=== PATIENT | female | born 1935 | race Asian ===

== ENCOUNTER 2017-10-12 16:25 | Emergency (ER) | payer OTHER ==
[~2017-10-12] VITALS: Ht 152.4 cm; Wt 48.6 kg
[~2017-10-12 16:25] MED LIST: HYDR25TA PO; LISI-661 PO
[2017-10-12] MEDS ORDERED: ASPI81 PO (16:42)
[2017-10-12] MEDS ORDERED: AMLO2.5T PO (16:42)
[2017-10-12] MEDS ORDERED: METO25XL PO (16:42)
[2017-10-12] MEDS ORDERED: ACETAMINOPHEN 325 MG TABLET PO ONE ×2 (16:45→17:00)
[2017-10-12] MEDS ORDERED: SODIUM CHLORIDE 0.9% 1,000 ML IV ONE (17:00)
[2017-10-12 17:30] LABS: BASOPHILS % (AUTO) 0.2 % (0.0-2.0); EOSINOPHILS % (AUTO) 0.1 % (1.0-6.0); HEMATOCRIT 41.6 % (36-46); HEMOGLOBIN 14.1 g/dL (12.0-16.0); LYMPHOCYTES # (AUTO) 0.6 K/uL (1.0-4.8); LYMPHOCYTES % (AUTO) 5.5 % (22.0-44.0); MEAN CORPUSCULAR HEMOGLOBIN 30.4 pg (26.0-34.0); MEAN CORPUSCULAR VOLUME 90 fL (80-100); MONOCYTES # (AUTO) 0.8 K/uL (0.1-1.0); MONOCYTES % (AUTO) 6.8 % (2.0-9.0); NEUTROPHILS # (AUTO) 10.1 K/uL (1.8-7.7); PLATELET COUNT (AUTO) 231 K/uL (150-450); RED BLOOD CELL COUNT(AUTO) 4.65 MIL/uL (4.00-5.20)
[2017-10-12 17:36] LABS: NEUTROPHILS % (AUTO) 87.4 % (40.0-70.0)
[2017-10-12 17:43] LABS: ANION GAP 12 mmol/L (8-16); CALCIUM, TOTAL 9.4 mg/dL (8.8-10.5); CARBON DIOXIDE 24 mmol/L (22-29); CHLORIDE 101 mmol/L (98-107); CREATININE 0.87 mg/dL (0.60-1.30); GLOMERULAR FILTR. RATE CALC > 60 mL/min (>60); GLUCOSE,RANDOM 130 mg/dL (70-110); POTASSIUM 3.6 mmol/L (3.5-5.1); SODIUM SERUM 137 mmol/L (136-145); UREA NITROGEN, BLOOD 10 mg/dL (7-18)
[2017-10-12 17:50] LABS: ALANINE AMINOTRANSFERASE 175 U/L (12-78); ALBUMIN 4.1 g/dL (3.4-5.0); ALKALINE PHOSPHATASE 473 U/L (46-116); ASPARTATE AMINOTRANSFERASE 207 U/L (15-37); BILIRUBIN,TOTAL 1.8 mg/dL (0.1-1.0); LACTIC ACID 1.5 mmol/L (0.4-2.0); LIPASE 311 U/L (73-393); TOTAL PROTEIN, SERUM 8.7 g/dL (6.4-8.2)
[2017-10-12 19:19] LABS: APPEARANCE,URINE CLEAR (CLEAR); BILIRUBIN,URINE NEGATIVE (NEGATIVE); GLUCOSE, URINE (UA) NEGATIVE (NEGATIVE); KETONES,URINE NEGATIVE (NEGATIVE); LEUKOCYTE ESTERASE ,URINE NEGATIVE (NEGATIVE); NITRATE,URINE NEGATIVE (NEGATIVE); OCCULT BLOOD,URINE NEGATIVE (NEGATIVE); PROTEIN,URINE NEGATIVE (NEGATIVE); UROBILINOGEN,URINE 0.2 mg/dL (<=1.0)
[2017-10-12] MEDS ORDERED: CefTRIAXone SODIUM 1 GM in DEXTROSE 5%-WATER 10 ML IV ONE (22:15)
[2017-10-13 01:15] VITALS: BP 133/82
== END 2017-10-13 03:47 | disposition short-term general hospital (02) ==
LOC: EMS 16:26
DX: K83.8 Other specified diseases of biliary tract (principal); E80.7 Disorder of bilirubin metabolism, unspecified; R94.5 Abnormal results of liver function studies; R74.8 Abnormal levels of other serum enzymes; R10.13 Epigastric pain; R50.9 Fever, unspecified; I10 Essential (primary) hypertension
CPT/HCPCS: 36415; 51702; 76700; 80053; 81003; 83605; 83690; 84484; 85025; 87040; 87077; 87186; 87205; 93005; 96361; 96374; 99285; J0696; J7030; J7060

== ENCOUNTER 2020-08-26 15:47 | Emergency (ER) | payer OTHER ==
[~2020-08-26] VITALS: Ht 152.4 cm; Wt 50.0 kg
[~2020-08-26 15:47] MED LIST changes: +AMLO2.5T96 PO; +ASPI-1450 PO; -HYDR25TA PO; -LISI-661 PO; +METO25XL PO
[2020-08-26 15:50] VITALS: BP 174/86
== END 2020-08-26 18:16 | disposition home or self-care (01) ==
LOC: EMS 15:47
DX: J32.9 Chronic sinusitis, unspecified (principal); I10 Essential (primary) hypertension
CPT/HCPCS: 99283; 71045-TC